=== PATIENT | female | born 1995 | race African-American/Black ===

== ENCOUNTER 2017-09-10 09:38 | Emergency (ER) | payer OTHER ==
[~2017-09-10] VITALS: Ht 154.9 cm; Wt 38.1 kg
[~2017-09-10 09:38] MED LIST: CHROMAGEN,1 CAPSULE PO; FIORICET,ESG1 TABLET PO; IBUPROFEN800 MG PO; PNV PRENATAL P1 EACH PO
[2017-09-10 10:08] LABS: HEMATOCRIT 43.4 % (36.0-46.0); MCH 29.9 PG (29.0-34.0); MCHC 33.6 G/DL (30.0-36.0); MCV 88.8 FL (83-99); RBC DIS.WIDTH-CV 12.7 % (11.8-14.6); RBC DIS.WIDTH-SD 41.6 % (39-53); RED BLOOD COUNT 4.89 M/uL (3.80-5.20); WHITE BLOOD COUNT 15.2 K/uL (4.1-10.2)
[2017-09-10 10:17] LABS: CHLORIDE 105 mEq/L (99-109); POTASSIUM 3.8 mEq/L (3.7-5.4); SODIUM 138 mEq/L (136-147)
[2017-09-10 10:19] LABS: GLUCOSE 112 mg/dL (70-99)
[2017-09-10 10:21] LABS: ANION GAP 13 MEQ/L (2-14); TOTAL BILIRUBIN 0.7 mg/dL (0.0-1.0)
[2017-09-10 10:23] LABS: ALKALINE PHOSPHATASE 83 IU/L (3-129); GFR ESTIMATE (CALCULATED) > 59 mL/min/
[2017-09-10 10:24] LABS: UREA NITROGEN (BUN) 14 mg/dL (9-23)
[2017-09-10 10:32] LABS: QUANTITATIVE HCG < 4.0 MIU/ML
[2017-09-10 10:59] LABS: MEAN PLAT.VOLUME 10.6 uM^3 (9.5-12.4); PLAT.SUFFICIENCY ADEQUATE; PLATELET COUNT 307 K/uL (156-360)
[2017-09-10 11:54] LABS: ADD MIUA? YES; BILIRUBIN NEGATIVE; BLOOD NEGATIVE; COLOR YELLOW ((YELLOW)); GLUCOSE (STRIP) NEGATIVE; KETONES NEGATIVE; LEUKOCYTES SMALL; NITRITE NEGATIVE; PROTEIN (STRIP) 30; SPECIFIC GRAVITY 1.026 (1.000-1.030); UROBILINOGEN 0.2 MG/DL (0.2-1.0)
[2017-09-10 11:58] LABS: BACTERIA NONE SEEN /HPF; EPITHELIAL CELLS 1+ /HPF; MUCUS 2+ /LPF; UCUL ADDED? NO; WHITE BLOOD CELLS 0-5 /HPF (0-5)
[2017-09-10] MEDS ORDERED: ZOFRAN ODT4 MG PO (14:44)
[2017-09-10 14:56] VITALS: BP 127/85
== END 2017-09-10 14:57 | disposition home or self-care (01) ==
LOC: EME 09:38
DX: N83.201 Unspecified ovarian cyst, right side (principal); R11.2 Nausea with vomiting, unspecified; R19.7 Diarrhea, unspecified; R42 Dizziness and giddiness; R30.0 Dysuria; M54.5 Low back pain
CPT/HCPCS: 74177; 76856; 80053; 81003; 84702; 85027; 99281; 99284; J1885; J2405; J7030